=== PATIENT | female | born 1995 | race African-American/Black ===

== ENCOUNTER 2024-01-10 13:07 | Emergency (ER) | payer MEDICAID, OTHER ==
[2024-01-10] MEDS ORDERED: HYDROcodone/Acetaminophen 10/325 mg Tablet ONE (14:49)
== END 2024-01-10 14:55 | disposition home or self-care (01) ==
LOC: BURERS 13:07
DX: S16.1XXA Strain of muscle, fascia and tendon at neck level, initial encounter (principal); V89.2XXA Person injured in unspecified motor-vehicle accident, traffic, initial encounter
CPT/HCPCS: 72125; G0390